=== PATIENT | male | born 1965 | race African-American/Black ===

== ENCOUNTER 2019-11-08 08:11 | Day surgery (SDC) | payer BC ==
[2019-11-08] VITALS (9 sets, daily range): BP systolic 122–144; BP diastolic 80–94
[~2019-11-08] VITALS: Ht 185.4 cm; Wt 104.3 kg
[~2019-11-08 08:11] MED LIST: LR 1000ml 1,000 ML IVLG SCH
[2019-11-08] MEDS ORDERED: LR 1000ml 1,000 ML IVLG SCH (09:16)
[2019-11-08] MEDS ORDERED: ACTONEL5 MG ORAL (09:16)
--- NOTE | 2019-11-08 09:20 | Anethesia Preoperative Eval ---
Anesthesia Pre-op PMH/ROS General Date of Evaluation: Nov 08, 2019 Time of Evaluation: 09:17 Anesthesiologist: edwar ASA Score: ASA 3 Mallampati Score Class I : Soft palate, uvula, fauces, pillars visible Class II: Soft palate, uvula, fauces visible Class III: Soft palate, base of uvula visible Class IV: Only hard plate visible Mallampati Classification: Class II Surgeon: sher Diagnosis: hx/o colon polyps Surgical Procedure: colonoscopy Anesthesia History: none Social History: smoking - former smoker, alcohol use Family History: no anesthesia problems Allergies: Coded Allergies: No Known Allergies (Unverified , 10/29/19) Medications: see eMAR Patient NPO?: Yes Past Medical History Cardiovascular: Reports: HTN Gastrointestinal/Genitourinary: Reports: other - uti, colonic polyps HEENT: Reports: other Musculoskeletal/Integumentary: Reports: other - low back pain Anesthesia Pre-op Phys. Exam Physician Exam Last Vital Signs Date Time Temp Pulse Resp B/P (MAP) Pulse Ox O2 Delivery O2 Flow Rate FiO2 11/08/19 09:12 97.5 63 18 136/91 99 Room Air Constitutional: NAD Neurologic: CN 2-12 intact Cardiovascular: RRR Respiratory: CTA Airway Exam Mallampati Score: Class II MO: limited Neck: flexible TMD: 2fb ROM: limited Anesthesia Pre-op A/P Studies Pre-op Studies: EKG - nsr, cannot rule out anterior infarct Risk Assessment & Plan Assessment: asa3 Plan: mac Status Change Before Surgery: No Pre-Antibiotics Drug: Debbie Mayorga MD Nov 08, 2019 09:20
[2019-11-08] MEDS ORDERED: fentaNYL 100 mcg/2 mL IV PRN (09:30)
[2019-11-08] MEDS ORDERED: Propofol 200mg/20ml IV ONE (09:30)
[2019-11-08] MEDS ORDERED: Lidocaine 1% MPF 10mg/ml 5ml ONE (09:30)
[2019-11-08] MEDS ORDERED: LR 1000ml ONE (09:30)
[2019-11-08] MEDS ORDERED: Midazolam 2mg/2ml Inj IVP PRN (09:30)
[2019-11-08] MEDS ORDERED: Atropine Inj 1mg/10ml Syr IV PRN (09:30)
[2019-11-08] MEDS ORDERED: DiphenhydrAMINE 50mg/ml Inj IVP PRN (09:30)
--- NOTE | 2019-11-08 09:46 | Pre-Procedure Note/Attestation ---
Pre-Procedure Note/Attestation Complete Prior to Procedure Planned Procedure: not applicable Procedure Narrative: colonoscopy Indications for Procedure Pre-Operative Diagnosis: h/o colon polyps Attestation I attest that I discussed the nature of the procedure; its benefits; risks and complications; and alternatives (and the risks and benefits of such alternatives ), prior to the procedure, with the patient (or the patient's legal sales representative). I attest that, if there was a reasonable possibility of needing a blood transfusion, the patient (or the patient's legal sales representative) was given the [facility] standardized written summary, pursuant to the [place] Blood Safety Act ([place] Health and Safety Code # 1645, as amended). I attest that I re-evaluated the patient just prior to the surgery and that there has been no change in the patient's H&P, except as documented below: Moises Lujan MD Nov 08, 2019 09:46
--- NOTE | 2019-11-08 09:47 | Short Stay Surgery H&P ---
History of Present Illness History of Present Illness Chief Complaint screening colon HPI Sven Frederick is a 53 year old male who was admitted on for History Of Colon Polyps Patient History Allergies: Coded Allergies: No Known Allergies (Unverified , 10/29/19) PAST MEDICAL HISTORY: (1) HTN (hypertension) (2) Hypercholesteremia Medication History Scheduled Risedronate Sodium (Actonel), 5 MG ORAL DAILY, (Reported) Review of Systems Cardiovascular: Reports: no symptoms Respiratory: Reports: no symptoms Skeletal: Reports: no symptoms Gastrointestinal: Reports: no symptoms Genitourinary: Reports: no symptoms Neurologic: Reports: no symptoms Endocrine: Reports: no symptoms Hematologic: Reports: no symptoms Physical Exam Vital Signs Last Vital Signs Date Time Temp Pulse Resp B/P (MAP) Pulse Ox O2 Delivery O2 Flow Rate FiO2 11/08/19 09:12 97.5 63 18 136/91 99 Room Air Skin: normal HENT: normal Heart: normal Lungs: normal Abdomen: normal Extremities: normal Plan Plan of Care colonoscopy Attestation Are the patient's medical conditions optimized for surgery? Attestation Response: yes Moises Lujan MD Nov 08, 2019 09:47
--- NOTE | 2019-11-08 10:17 | Endoscopy Procedure Note ---
Endoscopy Procedure Note General Indication for Procedure: screening Procedures Performed: colonoscopy Operative Findings/Diagnosis: diverticulosis Specimen: none Pt Tolerated Procedure Well: Yes Estimated Blood Loss: none Anesthesia Anesthesiologist: leyda cummings Anesthesia: MAC Inserted Devices Implant(s) used?: No Quality Quality of Bowel Preparation: Good Did scope reach the cecum?: Yes Was there any complications?: No GI Core Measures 50 yrs or older w/o bx or poly: No 10yrs. F/U recommended: Yes If not recommended, why?: Above average risk 18 years or older w/prev. colo: Yes <3yrs. since last colonoscopy: No Moises Lujan MD Nov 08, 2019 10:17
--- NOTE | 2019-11-08 10:35 | Immediate Post-Op Evaluation ---
Immediate Post-Op Evalulation Immediate Post-Op Evalulation Procedure: colonoscopy Date of Evaluation: Nov 08, 2019 Time of Evaluation: 10:34 IV Fluids: 500ml lr Blood Products: none Estimated Blood Loss: negligible Blood Pressure Systolic: 144 Blood Pressure Diastolic: 89 Pulse Rate: 67 Respiratory Rate: 18 O2 Sat by Pulse Oximetry: 100 Temperature (Fahrenheit): 97.3 Pain Score (1-10): 0 Nausea: No Vomiting: No Complications none Patient Status: awake, reacts, patent Hydration Status: adequate Drug: Debbie Mayorga MD Nov 08, 2019 10:35
--- NOTE | 2019-11-08 10:36 | 48 Hour Post Anesthesia Eval ---
Post Anesthesia Evaluation Procedure: colonoscopy Date of Evaluation: Nov 08, 2019 Time of Evaluation: 10:36 Blood Pressure Systolic: 136 0: 94 Pulse Rate: 59 Respiratory Rate: 18 Temperature (Fahrenheit): 97.3 O2 Sat by Pulse Oximetry: 100 Airway: patent Nausea: No Vomiting: No Pain Intensity: 0 Hydration Status: adequate Cardiopulmonary Status: none Mental Status/LOC: patient returned to baseline Post-Anesthesia Complications: none Follow-up care needed: N/A Debbie Tomlinson MD Nov 08, 2019 10:36
--- NOTE | 2019-11-08 16:00 | Procedure Note ---
DATE OF PROCEDURE: 11/08/2019 SURGEON: Moises Lujan M.D. PROCEDURE: Colonoscopy. ANESTHESIA: Per Dr. Elias. INSTRUMENT: Olympus adult flexible colonoscope. INDICATION: Screening colonoscopy evaluation. REASON FOR PROCEDURE: The procedure, risks, benefits, and possible consequences, including hemorrhage, aspiration, perforation and infection, and alternative treatments, were explained to the patient/legal guardian by Dr. Moises Lujan and the patient/legal guardian understood and accepted these risks. PROCEDURE IN DETAIL: After informed consent was obtained and the patient was adequately sedated, first rectal exam was performed which was positive for internal hemorrhoids. Then, the scope was advanced from the rectum into the cecum documented by appendiceal orifice, ileocecal valve, and upper quadrant palpation. Quality of prep was overall good. The patient had some scattered diverticula in the right colon. No obvious mass or polyp was seen in this colonoscopy examination. Retroflexion of rectum showed evidence of internal hemorrhoids. SUMMARY OF FINDINGS: 1. Right-sided diverticulosis. 2. Internal hemorrhoids. RECOMMENDATIONS: The patient to have a repeat colonoscopy in 5 years. Moises Lujan M.D. DR: Constance JOB#: [id number] CC:
== END 2019-11-08 11:40 | disposition home or self-care (01) ==
LOC: GAS 08:11
DX: Z12.11 Encounter for screening for malignant neoplasm of colon (principal); K57.90 Diverticulosis of intestine, part unspecified, without perforation or abscess without bleeding; K64.8 Other hemorrhoids; I10 Essential (primary) hypertension; E78.00 Pure hypercholesterolemia, unspecified; Z86.010 Personal history of colon polyps; Z87.891 Personal history of nicotine dependence
CPT/HCPCS: 45378; 93005; J2704; J7120; 94003; 94150